=== PATIENT | female | born 1995 | race Caucasian/White ===

== ENCOUNTER 2017-11-18 15:28 | Inpatient (IN) | payer MEDICAID ==
[2017-11-18 16:04] LABS: APPEARANCE,URINE CLEAR; BILIRUBIN,URINE NEGATIVE (NEGATIVE); COLOR,URINE YELLOW; GLUCOSE, URINE NEGATIVE (NEGATIVE); KETONES,URINE NEGATIVE (NEGATIVE); LEUKOCYTE ESTERASE,URINE SMALL (NEGATIVE); NITRITE,URINE NEGATIVE (NEGATIVE); PROTEIN,URINE NEGATIVE (NEGATIVE); URINE SPECIFIC GRAVITY 1.012; UROBILINOGEN,URINE NEGATIVE mg/dL (<2.0)
[2017-11-18 16:12] LABS: AMNISURE (ROM) NEGATIVE (NEGATIVE)
[2017-11-18 16:15] LABS: URINE AMPHETAMINES SCREEN NEGATIVE; URINE BARBITURATES SCREEN NEGATIVE; URINE BENZODIAZEPINES SCREEN NEGATIVE; URINE COCAINE SCREEN NEGATIVE; URINE MARIJUANA (THC) SCREEN NEGATIVE; URINE METHADONE SCREEN NEGATIVE; URINE PHENCYCLIDINE SCREEN NEGATIVE
[2017-11-18 16:58] LABS: ABSOLUTE LYMPHOCYTES (AUTO) 2.8 10^3/uL (0.5-4.7); ABSOLUTE MONOCYTES (AUTO) 0.9 10^3/uL (0.1-1.4); ABSOLUTE NEUT (AUTO) 11.3 10^3/uL (1.7-8.2); BASOPHILS % (AUTO) 0.2 % (0-2); EOSINOPHILS % (AUTO) 0.1 % (0-6); HEMATOCRIT 34.6 % (36.0-47.0); HEMOGLOBIN 11.5 g/dL (12.0-15.5); LYMPHOCYTES % (AUTO) 18.4 % (13-45); MEAN CORPUSCULAR HEMOGLOBIN 28.1 pg (27.0-33.4); MEAN CORPUSCULAR HGB CONC 33.2 g/dL (32.0-36.0); MEAN CORPUSCULAR VOLUME 85 fl (80-97); MONOCYTES % (AUTO) 6.3 % (3-13); PLATELET COUNT 153 10^3/uL (150-450); RED CELL DISTRIBUTION WIDTH 13.6 % (11.5-14.0); TOTAL CELLS COUNTED % (AUTO) 100 %
[2017-11-18 17:22] LABS: ALANINE AMINOTRANSFERASE 19 U/L (9-52); ALBUMIN 3.3 g/dL (3.5-5.0); ALKALINE PHOSPHATASE 145 U/L (38-126); ANION GAP 9 (5-19); ASPARTATE AMINO TRANSFERASE 17 U/L (14-36); BILIRUBIN,DIRECT 0.1 mg/dL (0.0-0.4); BILIRUBIN,TOTAL 0.1 mg/dL (0.2-1.3); BLOOD UREA NITROGEN 12 mg/dL (7-20); CALCIUM 9.2 mg/dL (8.4-10.2); CARBON DIOXIDE 22 mmol/L (22-30); CHLORIDE 108 mmol/L (98-107); GLUCOSE 76 mg/dL (75-110); LDH 640 U/L (313-618); POTASSIUM 4.4 mmol/L (3.6-5.0); SODIUM 138.5 mmol/L (137-145); TOTAL PROTEIN 6.1 g/dL (6.3-8.2); URIC ACID 6.6 mg/dL (2.5-6.2)
[2017-11-18] MEDS ORDERED: BETAMET ACET/BETAMET NA INJ 6 MG/1 ML ONE (17:53)
[2017-11-18] MEDS ORDERED: MAGNESIUM SULFATE 0 GM/0 ML RTUPB IV ONE (18:02)
[2017-11-18] MEDS ORDERED: PENICILLIN G-K 5 MILLION UNIT VIAL ONE ×2 (18:03→22:04)
[2017-11-18] MEDS ORDERED: MAGNESIUM SULFATE 4 GM/100 ML RTUPB IV ONE (18:03)
[2017-11-18 18:09] LABS: ABSOLUTE EOSINOPHILS # (AUTO) 0.1 10^3/uL (0.0-0.6); ABSOLUTE LYMPHOCYTES (AUTO) 2.9 10^3/uL (0.5-4.7); ABSOLUTE MONOCYTES (AUTO) 0.9 10^3/uL (0.1-1.4); BASOPHILS % (AUTO) 0.3 % (0-2); EOSINOPHILS % (AUTO) 0.4 % (0-6); HEMOGLOBIN 10.8 g/dL (12.0-15.5); LYMPHOCYTES % (AUTO) 19.1 % (13-45); MEAN CORPUSCULAR HEMOGLOBIN 28.5 pg (27.0-33.4); MEAN CORPUSCULAR HGB CONC 33.7 g/dL (32.0-36.0); MEAN CORPUSCULAR VOLUME 85 fl (80-97); MONOCYTES % (AUTO) 6.1 % (3-13); PLATELET COUNT 142 10^3/uL (150-450); RED BLOOD COUNT 3.78 10^6/uL (3.72-5.28); RED CELL DISTRIBUTION WIDTH 13.7 % (11.5-14.0); SEGMENTED NEUTROPHILS % (AUTO) 74.1 % (42-78); TOTAL CELLS COUNTED % (AUTO) 100 %; WHITE BLOOD COUNT 14.9 10^3/uL (4.0-10.5)
[2017-11-18] MEDS ORDERED: MAGNESIUM SULFATE 20 GM/500 ML RTUINJ IV ONE (18:10)
[2017-11-18 18:24] LABS: ALANINE AMINOTRANSFERASE 23 U/L (9-52); ALBUMIN 2.8 g/dL (3.5-5.0); ALKALINE PHOSPHATASE 132 U/L (38-126); ANION GAP 11 (5-19); ASPARTATE AMINO TRANSFERASE 15 U/L (14-36); BILIRUBIN,TOTAL < 0.1 mg/dL (0.2-1.3); BLOOD UREA NITROGEN 11 mg/dL (7-20); CALCIUM 8.7 mg/dL (8.4-10.2); CARBON DIOXIDE 20 mmol/L (22-30); CHLORIDE 108 mmol/L (98-107); GLUCOSE 105 mg/dL (75-110); LDH 581 U/L (313-618); POTASSIUM 4.2 mmol/L (3.6-5.0); SODIUM 139.3 mmol/L (137-145); TOTAL PROTEIN 5.4 g/dL (6.3-8.2); URIC ACID 6.5 mg/dL (2.5-6.2)
--- NOTE | 2017-11-18 18:24 | Admission Physical ---
Datetime Report Generated by CPN: 11/18/2017 18:23 CURRENT ADMISSION Chief Complaint: Uterine Contractions Indication for Induction: Not Applicable Admit Impression : , Intrauterine ; Obstetrical Complication Admit Impression- Other: Elevated b/p; uric acid-6.6; LDH-640--admitting for pre-eclampsia Admit Plan: Admit to Unit Admit Plan- Other: Preeclampsia ALLERGIES Medication Allergies: No Medication Allergies: No Known Allergies (11/18/2017) Latex: No Latex Allergies OBSTETRICAL HISTORY EDC: 12/31/2017 00:00 : 2 Para: 1 Term: 0 : 1 SAB: 0 IAB: 0 Gestational Diabetes: No Rh Sensitization: No Incompetent Cervix: No MAI: No Infertility: No ART Treatment: No Uterine Anomaly: No IUGR: No Hx Previous C/S: No Macrosomia: No Hx Loss/Stillborn: No PIH: Yes Hx : No Placenta Previa/Abruption: Yes Depression/PP Depression: Yes PTL/PROM: No Post Hemorrhage: Yes Current Procedures: Ultrasound; NST Obstetrical History Comments: G1: 2014, 29 weeks, abruption G2: current SEE RECORDS Alcohol: No Marijuana : No Cocaine: No Other Illicit Drugs: No Cigarettes: Never Smoker. [id number] MEDICAL HISTORY Diabetes: No Blood Transfusion: No Pulmonary Disease (Asthma, TB): No Breast Disease: No Hypertension: No Transmission And Protection Engineer Surgery: No Heart Disease: No Hosp/Surgery: No Autoimmune Disorder: No Anesthetic Complications: No Kidney Disease: No Abnormal Pap Smear: No Neuro/Epilepsy: No Psychiatric Disorders: No Other Medical Diseases: No Hepatitis/Liver Disease: No Significant Family History: No Varicosities/Phlebitis: No Trauma/Violence : No Thyroid Dysfunction: No INFECTIOUS HISTORY Gonorrhea: No Genital Herpes: No Chlamydia: No Tuberculosis: No Syphilis: No Hepatitis: No HIV/AIDS Exposure: No Rash or Viral Illness: No HPV: No Infectious History Comments: chlamiydia in June, PHYSICAL EXAM General: Normal HEENT: Normal Neurologic: Normal Thyroid: Deferred Heart: Abnormal Lungs: Normal Breast: Deferred Back: Deferred Abdomen: Normal Genitourinary Exam: Deferred Extremities: Normal DTRs: Normal Pelvic Type: Not Done Physical Exam Comments: Gravid uterus Vital Signs: Reviewed Details Vital Signs: Elevated b/p FETUS A EGA: 33.6 Monitoring: External US FHR- Baseline: 130 Variability: Moderate 6-25bpm Accelerations: 15X15 FHR Category: Category I Admit Comment: Prior c/s at 29 wks for preeclampsia-hospitalized x1 wk pp for severe b/p. Baby with heart murmur and inguinal hernia repair. Medications: PNV, ASA 81mg daily-last dose this am, Wellbutrin 300mg po qd. History Chorea Gravidarum throughout last and at beginning of current History spotting in and again 2 wks ago Psychosocial issues: Different FOB this , was terminated, FOB involvement dependent on paternity testing Awaiting antepartum records from [facility]-last seen there mid PLANS FOR LABOR AND DELIVERY Labor and Delivery: None Pain Management: Epidural; Spinal Feeding Preference: Breast Benefit of Breast Feed Discussed: Yes Circumcision: Yes INFORMED CONSENT Assignment: Salomón Castaneda MD Signature: with User ID: [email or web address] : with User ID: [email or web address] : I personally evaluated and examined the patient in conjunction with the MLP and agree with the assessment, treatment plan and disposition.
[2017-11-18] MEDS ORDERED: ACETAMINOPHEN 325 MG TABLET ONE (20:09)
[2017-11-18 22:23] LABS: UR PRO/CREAT RATIO RESULT 0.2 mg/mg (0.0-0.2); URINE CREATININE 86.5 mg/dL (16-327); URINE PROTEIN 15.4 mg/dL (<12)
[2017-11-19] MEDS ORDERED: ACETAMINOPHEN 325 MG TABLET ONE ×3 (01:07→10:17)
[2017-11-19] MEDS ORDERED: PENICILLIN G-K 5 MILLION UNIT VIAL ONE ×4 (01:55→14:19)
[2017-11-19] MEDS: PENICILLIN G-K 5 MILLION UNIT VIAL IV SCH ×4 (02:01→14:24)
[2017-11-19] MEDS ORDERED: MAGNESIUM SULFATE 20 GM/500 ML RTUINJ IV ONE ×2 (02:59→12:54)
[2017-11-19 07:16] LABS: ABSOLUTE LYMPHOCYTES (AUTO) 1.6 10^3/uL (0.5-4.7); ABSOLUTE MONOCYTES (AUTO) 0.1 10^3/uL (0.1-1.4); ABSOLUTE NEUT (AUTO) 13.4 10^3/uL (1.7-8.2); BASOPHILS % (AUTO) 0.1 % (0-2); HEMATOCRIT 35.3 % (36.0-47.0); LYMPHOCYTES % (AUTO) 10.7 % (13-45); MEAN CORPUSCULAR HEMOGLOBIN 28.3 pg (27.0-33.4); MEAN CORPUSCULAR HGB CONC 33.8 g/dL (32.0-36.0); MEAN CORPUSCULAR VOLUME 84 fl (80-97); MONOCYTES % (AUTO) 0.8 % (3-13); PLATELET COUNT 160 10^3/uL (150-450); RED BLOOD COUNT 4.22 10^6/uL (3.72-5.28); RED CELL DISTRIBUTION WIDTH 13.9 % (11.5-14.0); SEGMENTED NEUTROPHILS % (AUTO) 88.4 % (42-78); TOTAL CELLS COUNTED % (AUTO) 100 %; WHITE BLOOD COUNT 15.2 10^3/uL (4.0-10.5)
[2017-11-19 07:30] LABS: BLOOD UREA NITROGEN 9 mg/dL (7-20); CALCIUM 7.5 mg/dL (8.4-10.2); GLUCOSE 100 mg/dL (75-110)
[2017-11-19 07:31] LABS: ALANINE AMINOTRANSFERASE 24 U/L (9-52); ALBUMIN 3.1 g/dL (3.5-5.0); ALKALINE PHOSPHATASE 161 U/L (38-126); ANION GAP 9 (5-19); ASPARTATE AMINO TRANSFERASE 17 U/L (14-36); BILIRUBIN,DIRECT 0.2 mg/dL (0.0-0.4); BILIRUBIN,TOTAL 0.2 mg/dL (0.2-1.3); CARBON DIOXIDE 22 mmol/L (22-30); CHLORIDE 104 mmol/L (98-107); LDH 634 U/L (313-618); TOTAL PROTEIN 5.8 g/dL (6.3-8.2); URIC ACID 6.3 mg/dL (2.5-6.2)
[2017-11-19 07:44] LABS: POTASSIUM 5.1 mmol/L (3.6-5.0)
[2017-11-19 08:56] LABS: ABSOLUTE LYMPHOCYTES (AUTO) 1.6 10^3/uL (0.5-4.7); ABSOLUTE MONOCYTES (AUTO) 0.2 10^3/uL (0.1-1.4); ABSOLUTE NEUT (AUTO) 13.4 10^3/uL (1.7-8.2); BASOPHILS % (AUTO) 0.1 % (0-2); HEMOGLOBIN 11.7 g/dL (12.0-15.5); LYMPHOCYTES % (AUTO) 10.6 % (13-45); MEAN CORPUSCULAR HGB CONC 33.3 g/dL (32.0-36.0); MEAN CORPUSCULAR VOLUME 84 fl (80-97); MONOCYTES % (AUTO) 1.5 % (3-13); PLATELET COUNT 176 10^3/uL (150-450); RED BLOOD COUNT 4.16 10^6/uL (3.72-5.28); RED CELL DISTRIBUTION WIDTH 13.8 % (11.5-14.0); SEGMENTED NEUTROPHILS % (AUTO) 87.8 % (42-78); TOTAL CELLS COUNTED % (AUTO) 100 %; WHITE BLOOD COUNT 15.3 10^3/uL (4.0-10.5)
[2017-11-19 09:13] LABS: ALANINE AMINOTRANSFERASE 26 U/L (9-52); ALKALINE PHOSPHATASE 164 U/L (38-126); ANION GAP 7 (5-19); ASPARTATE AMINO TRANSFERASE 18 U/L (14-36); BILIRUBIN,DIRECT 0.2 mg/dL (0.0-0.4); BILIRUBIN,TOTAL 0.2 mg/dL (0.2-1.3); BLOOD UREA NITROGEN 9 mg/dL (7-20); CALCIUM 7.4 mg/dL (8.4-10.2); CARBON DIOXIDE 22 mmol/L (22-30); CHLORIDE 105 mmol/L (98-107); GLUCOSE 95 mg/dL (75-110); LDH 637 U/L (313-618); POTASSIUM 4.9 mmol/L (3.6-5.0); SODIUM 133.5 mmol/L (137-145); TOTAL PROTEIN 5.7 g/dL (6.3-8.2); URIC ACID 6.2 mg/dL (2.5-6.2)
--- NOTE | 2017-11-19 10:20 | RADIOLOGY REPORT (SQ) ---
EXAM DESCRIPTION: U/S OB LIMITED COMPLETED DATE/TIME: 11/19/2017 10:06 am REASON FOR STUDY: presentation, fluid, growth COMPARISON: None. TECHNIQUE: Limited transabdominal grayscale ultrasound for evaluation of specific requested obstetri abigail parameters. LIMITATIONS: None. FINDINGS: CERVICAL LENGTH: Not measured Closed. ALFREDA: 6.4 cm cm. FHR: 119 beats per minute. PRESENTATION: Cephalic. OTHER: The placenta is anterior. IMPRESSION: LIMITED OBSTETRICAL ULTRASOUND WITH MEASURED PARAMETERS DELINEATED ABOVE. Trimester of : Second trimester - 13 weeks 1 day to 27 weeks 6 days. TECHNICAL DOCUMENTATION: JOB ID: [id number] [employer]- All Rights Reserved Reading location - IP/workstation name: [email or web address]
[2017-11-19] MEDS: ACETAMINOPHEN 325 MG TABLET PO PRN (10:27)
[2017-11-19] MEDS ORDERED: ONDANSETRON ODT 4 MG TAB (6 TAB/ER DISP) PO PRN (10:31)
[2017-11-19] MEDS ORDERED: ONDANSETRON HCL INJ/PF 4 MG/2 ML SDV ONE (10:35)
[2017-11-19] MEDS ORDERED: OXYTOCIN/NORMAL SALINE 20 UNIT/1,000 ML RTUINJ IV PRN ×2 (10:47→18:39)
[2017-11-19] MEDS ORDERED: NORMAL SALINE 250 ML IV PRN (10:59)
[2017-11-19] MEDS ORDERED: LIDOCAINE 1% INJ-PF (10 MG/ML) 30 ML SDV ONE (11:22)
[2017-11-19] MEDS ORDERED: MISOPROSTOL 0.2 MG TABLET ONE (11:22)
[2017-11-19] MEDS ORDERED: OXYTOCIN/NORMAL SALINE 20 UNIT/1,000 ML RTUINJ ONE (11:23)
[2017-11-19] MEDS ORDERED: BUTALB/ACETAMINOPHEN/CAFFEINE 1 TAB EACH PO PRN (12:08)
[2017-11-19] MEDS ORDERED: BUTALB/ACETAMINOPHEN/CAFFEINE 1 TAB EACH ONE ×2 (12:13→16:10)
[2017-11-19] MEDS ORDERED: FENTANYL CITRATE INJ/PF 100 MCG/2 ML AMPUL ONE ×2 (12:35→18:28)
[2017-11-19] MEDS ORDERED: FENTANYL/BUPIVACAINE/NS/PF 300 MCG/150 ML RTUINJ EPI ONE (12:36)
[2017-11-19] MEDS ORDERED: BUPIVACAINE HCL 0.25 % INJ/PF (2.5 MG/1 ML) 30 ML VIAL ONE (12:36)
[2017-11-19] MEDS ORDERED: PHENYLEPHRINE HCL INJ/PF 10 MG/1 ML SDV ONE (12:36)
[2017-11-19] MEDS ORDERED: EPHEDRINE SULFATE INJ 50 MG/1 ML AMPULE ONE (12:36)
[2017-11-19] MEDS ORDERED: ONDANSETRON 4 MG TAB.RAPDIS PO ONE (12:45)
--- NOTE | 2017-11-19 13:07 | L&D Progress Notes ---
PROGRESS NOTES Datetime Report Generated by YOBANY: 11/19/2017 13:07 PROGRESS NOTE Impression: Normal Progression of Labor; Reactive Non Stress Test Procedures: Sterile Vag Exam Plan: Continue Present Management; Induction; Cervical Ripening Informed Consent Obtained: Vaginal Delivery; Induction of Labor; Vaginal After ; Risks, Benefits and Alternatives Discussed Vital Signs : Within Normal Limits Comment: Pt with MORALES/Blurry vision. No RUQ pain. Extensive discussion with patient regarding TOLAC. Pt strongly desires to TOLAC and is a very good candidate to do so. Consents signed. Next dose of BMZ due 175. NICU aware that moving for delivery with Sever PreE. MORALES relieved with Tylenol and Fioricet. Blood bank has Blood but no platlets/cryo - however labs are stable (platlets normal and CBC normal). T_C x 2 units. Reviewed need for pressure catheter once AROM and that if baby or her appear to not be doing well that would recommend c/s. Reviewed risk of uterine rupture to mother and fetus. Patient desires to proceed with TOLAC but is aware of possible need for repeat c/s if maternal/ indications. Currently on mag sulfate and Abx. VAGINAL EXAM Dilatation: 2 Effacement: 50 Station: -2 Contractions: irreg FETUS A FHR - Baseline: 120 Monitoring: External US Variability: Moderate 6-25bpm Accelerations: 10X10 Decelerations: None FHR Category: Category II : 33.6 SIGNATURE SIGNATURE: [id number] SIGNATURE: [id number] Signature: with User ID: [email or web address] : I personally evaluated and examined the patient in conjunction with the MLP and agree with the assessment, treatment plan and disposition.
[2017-11-19] MEDS ORDERED: BETAMET ACET/BETAMET NA INJ 6 MG/1 ML IM ONE (13:48)
[2017-11-19] MEDS ORDERED: BETAMET ACET/BETAMET NA INJ 6 MG/1 ML ONE (13:52)
[2017-11-19 15:57] LABS: HEMATOCRIT 37.6 % (36.0-47.0); HEMOGLOBIN 12.5 g/dL (12.0-15.5); MEAN CORPUSCULAR HEMOGLOBIN 28.2 pg (27.0-33.4); MEAN CORPUSCULAR HGB CONC 33.3 g/dL (32.0-36.0); MEAN CORPUSCULAR VOLUME 85 fl (80-97); PLATELET COUNT 193 10^3/uL (150-450); RED BLOOD COUNT 4.43 10^6/uL (3.72-5.28); RED CELL DISTRIBUTION WIDTH 13.8 % (11.5-14.0); WHITE BLOOD COUNT 21.8 10^3/uL (4.0-10.5)
[2017-11-19 16:12] LABS: ABSOLUTE LYMPHOCYTES# (MANUAL) 2.4 10^3/uL (0.5-4.7); ABSOLUTE MONOCYTES # (MANUAL) 0.7 10^3/uL (0.1-1.4); ABSOLUTE NEUTROPHILS# (MANUAL) 18.7 10^3/uL (1.7-8.2); BASOPHILS % (MANUAL) 0 % (0-2); EOSINOPHILS % (MANUAL) 0 % (0-6); LYMPHOCYTES % (MANUAL) 11 % (13-45); MONOCYTES % (MANUAL) 3 % (3-13); SEGMENTED NEUTROPHILS % (MAN) 86 % (42-78); TOTAL CELLS COUNTED 100
[2017-11-19 16:13] LABS: PLATELET COMMENT ADEQUATE; TOXIC GRANULATION SLIGHT
[2017-11-19 16:16] LABS: ALANINE AMINOTRANSFERASE 20 U/L (9-52); ALBUMIN 3.5 g/dL (3.5-5.0); ALKALINE PHOSPHATASE 187 U/L (38-126); ANION GAP 13 (5-19); ASPARTATE AMINO TRANSFERASE 22 U/L (14-36); BILIRUBIN,DIRECT 0.3 mg/dL (0.0-0.4); BILIRUBIN,TOTAL 0.4 mg/dL (0.2-1.3); BLOOD UREA NITROGEN 9 mg/dL (7-20); CALCIUM 7.1 mg/dL (8.4-10.2); CARBON DIOXIDE 19 mmol/L (22-30); CHLORIDE 102 mmol/L (98-107); GLUCOSE 99 mg/dL (75-110); LDH 832 U/L (313-618); POTASSIUM 4.6 mmol/L (3.6-5.0); SODIUM 134.2 mmol/L (137-145); TOTAL PROTEIN 6.4 g/dL (6.3-8.2); URIC ACID 6.3 mg/dL (2.5-6.2)
[2017-11-19] MEDS ORDERED: MAGNESIUM HYDROXIDE SUSP 30 ML UDCUP PO PRN (18:39)
[2017-11-19] MEDS ORDERED: PSEUDOEPHEDRINE HCL 30 MG TABLET PO PRN (18:39)
[2017-11-19] MEDS ORDERED: ACETAMINOPHEN WITH CODEINE #3 TABLET PO PRN (18:39)
[2017-11-19] MEDS ORDERED: ACETAMINOPHEN 325 MG TABLET PO PRN (18:39)
[2017-11-19] MEDS ORDERED: GLYCERIN/WITCH HAZEL LEAF 1 EACH MED..PAD TP PRN (18:39)
[2017-11-19] MEDS ORDERED: DIPH/PERTUSS(ACELL)/TETANUS VAC/PF 0.5 ML SYR (>=10YO) IM PRN (18:39)
[2017-11-19] MEDS ORDERED: PROMETHAZINE HCL INJ 25 MG/1 ML VIAL IV PRN (18:39)
[2017-11-19] MEDS ORDERED: PROMETHAZINE HCL 25 MG SUPP.RECT PR PRN (18:39)
[2017-11-19] MEDS ORDERED: BENZOCAINE/MENTHOL AEROSOL SPRAY 56 ML TOP PRN (18:39)
[2017-11-19] MEDS ORDERED: PROMETHAZINE HCL 25 MG TABLET PO PRN (18:39)
[2017-11-19] MEDS ORDERED: DIBUCAINE 1% OINTMENT 28 GM TP PRN (18:39)
[2017-11-19] MEDS ORDERED: ZOLPIDEM TARTRATE 5 MG TABLET PO PRN (18:39)
[2017-11-19] MEDS ORDERED: MEASLES,MUMPS&RUBELLA VACC/PF 0.5 ML VIAL SUBCUT PRN (18:39)
[2017-11-19] MEDS ORDERED: DIPHENHYDRAMINE HCL 25 MG CAPSULE PO PRN (18:39)
[2017-11-19] MEDS ORDERED: NA PHOS,M-B/NA PHOS,DI-BA (ADULT) 133 ML ENEMA PR PRN (18:39)
[2017-11-19] MEDS ORDERED: ACETAMINOPHEN 650 MG SUPP.RECT PR PRN (18:39)
[2017-11-19] MEDS ORDERED: MISOPROSTOL 0.2 MG TABLET PR PRN (18:39)
--- NOTE | 2017-11-19 18:54 | Warning Signs in Babies ---
VOD Warning Signs Datetime Report Generated by [facility]: 11/19/2017 18:53 VOD#[id number] -Warning Signs in Babies: Viewed with Parent(s)/Family (11/19/2017 18:52:Nelli Ashby RN)
[2017-11-19] MEDS ORDERED: FENTANYL CITRATE INJ/PF 100 MCG/2 ML AMPUL IV PRN (18:57)
[2017-11-20] MEDS ORDERED: IBUPROFEN 800 MG TABLET ONE (00:05)
[2017-11-20] MEDS: IBUPROFEN 800 MG TABLET PO SCH ×3 (00:05→21:01)
[2017-11-20] MEDS ORDERED: ACETAMINOPHEN WITH CODEINE #3 TABLET ONE ×2 (03:42→15:39)
[2017-11-20] MEDS: FAMOTIDINE 20 MG TABLET PO SCH ×3 (03:43→21:00)
[2017-11-20] MEDS: PENICILLIN G-K 5 MILLION UNIT VIAL IV SCH ×5 (03:43→22:31)
[2017-11-20] MEDS: DOCUSATE SODIUM 100 MG CAPSULE PO SCH ×2 (03:59→18:31)
[2017-11-20] MEDS: SENNOSIDES/DOCUSATE 8.6-50 MG 1 EACH TABLET PO SCH (03:59)
[2017-11-20] MEDS ORDERED: MAGNESIUM SULFATE 20 GM/500 ML RTUINJ IV ONE (04:28)
[2017-11-20] MEDS ORDERED: MAGNESIUM SULFATE 20 GM/500 ML RTUINJ IV PRN (04:33)
[2017-11-20] MEDS ORDERED: FUROSEMIDE INJ/PF 20 MG/2 ML SDV IV ONE (06:34)
[2017-11-20] MEDS ORDERED: FUROSEMIDE INJ/PF 40 MG/4 ML SDV ONE (06:40)
--- NOTE | 2017-11-20 06:49 | L&D Progress Notes ---
PROGRESS NOTES Datetime Report Generated by CPN: 11/20/2017 06:49 PROGRESS NOTE Impression: Eclampsia - Severe Plan: Continue Present Management Informed Consent Obtained: Risks, Benefits and Alternatives Discussed Vital Signs : Reviewed Comment: 12hours post delivery for symptomatic PreE/ - UOP remains 150ml/hr. Reviewed UOP with patient and reviewed need for improved UOP. Cr last was 0.84 and UA and LDH and Alk phos elevated with platlets stable. labs pending for 0700. If good response to lasix then consider discontinue Mag and begin [place] and transfer to the floor. Will conitnue to monitor. PreE symptoms now resolved. FETUS C SIGNATURE: [id number];,[id number];[id number] SIGNATURE: [id number];,[id number];,[id number] Signature: with User ID: [email or web address]
[2017-11-20 08:16] LABS: ALANINE AMINOTRANSFERASE 18 U/L (9-52); ALBUMIN 2.7 g/dL (3.5-5.0); ALKALINE PHOSPHATASE 114 U/L (38-126); ANION GAP 8 (5-19); ASPARTATE AMINO TRANSFERASE 20 U/L (14-36); BLOOD UREA NITROGEN 12 mg/dL (7-20); CARBON DIOXIDE 24 mmol/L (22-30); CHLORIDE 105 mmol/L (98-107); GLUCOSE 94 mg/dL (75-110); LDH 703 U/L (313-618); POTASSIUM 4.6 mmol/L (3.6-5.0); SODIUM 136.9 mmol/L (137-145); TOTAL PROTEIN 5.1 g/dL (6.3-8.2); URIC ACID 6.2 mg/dL (2.5-6.2)
[2017-11-20 08:24] LABS: HEMATOCRIT 29.5 % (36.0-47.0); MEAN CORPUSCULAR HEMOGLOBIN 28.5 pg (27.0-33.4); MEAN CORPUSCULAR HGB CONC 34.2 g/dL (32.0-36.0); MEAN CORPUSCULAR VOLUME 83 fl (80-97); PLATELET COUNT 169 10^3/uL (150-450); RED BLOOD COUNT 3.53 10^6/uL (3.72-5.28); RED CELL DISTRIBUTION WIDTH 13.9 % (11.5-14.0)
[2017-11-20 08:27] LABS: HEMOGLOBIN 10.1 g/dL (12.0-15.5)
[2017-11-20 08:28] LABS: BILIRUBIN,TOTAL < 0.1 mg/dL (0.2-1.3)
[2017-11-20 08:29] LABS: CALCIUM 6.8 mg/dL (8.4-10.2)
[2017-11-20] MEDS: FERROUS SULFATE 325 MG TABLET PO SCH (19:28)
[2017-11-20] MEDS: PRENATAL VITAMIN W DHA CAPSULE PO SCH (19:28)
[2017-11-20] MEDS: ACETAMINOPHEN WITH CODEINE #3 TABLET PO PRN (23:51)
[2017-11-21] MEDS: PENICILLIN G-K 5 MILLION UNIT VIAL IV SCH ×2 (05:01→12:16)
[2017-11-21] MEDS: IBUPROFEN 800 MG TABLET PO SCH ×3 (05:19→21:26)
[2017-11-21] MEDS: PRENATAL VITAMIN W DHA CAPSULE PO SCH (09:03)
[2017-11-21] MEDS: DOCUSATE SODIUM 100 MG CAPSULE PO SCH ×2 (09:03→18:00)
[2017-11-21] MEDS: FAMOTIDINE 20 MG TABLET PO SCH ×2 (09:04→21:27)
[2017-11-21] MEDS: SENNOSIDES/DOCUSATE 8.6-50 MG 1 EACH TABLET PO SCH (09:04)
[2017-11-21] MEDS: FERROUS SULFATE 325 MG TABLET PO SCH ×2 (09:04→18:00)
[2017-11-21] MEDS: ACETAMINOPHEN WITH CODEINE #3 TABLET PO PRN (09:12)
--- NOTE | 2017-11-21 10:07 | PDOC PROGRESS REPORT ---
Subjective-OB Progress Note for:: 11/21/17 Subjective: Day #2 s/p successful Pt doing well, denies concerns, states lochia is stable, pain well controlled, voiding without difficulty. Denies headache, visual disturbances, or epigastric pain Physical Exam (OB) Vital Signs: Temp Pulse Resp BP Pulse Ox 98.4 F 64 16 120/76 99 11/21/17 07:16 11/21/17 07:16 11/21/17 07:16 11/21/17 07:16 11/21/17 07:16 Intake & Output 11/20/17 11/21/17 11/22/17 06:59 06:59 06:59 Intake Total 400 Balance 400 - PIH/Pre-Eclampsia DTR's: 2 + Clonus: Negative Headache: Absent Epigastric Pain: No Visual Changes: No - Lochia Lochia Amount: Scant < 10 ml Lochia Color: Rubra/Red - Abdomen Description: Tender, Soft, Round Hernia Present: No Fundal Description: Firm, Midline Fundal Height: u/u - u/2 Objective-Diagnostic Laboratory: 11/20/17 06:40 11/20/17 06:40 Assessment and Plan(PN) - Assessment and Plan (1) History of low transverse section Is this a current diagnosis for this admission?: Yes Plan: routine post op care (2) Pre-eclampsia Qualifiers: Trimester: third trimester Qualified Code(s): O14.93 - Unspecified pre- eclampsia, third trimester Is this a current diagnosis for this admission?: Yes Plan: routine care, in office f/u (3) Vaginal delivery following previous section, delivered Is this a current diagnosis for this admission?: Yes Plan: routine care - Time Spent with Patient Time with patient: Less than 15 minutes Critical Time spent with patient: Less than 15 minutes Medications reviewed and adjusted accordingly: Yes - Disposition Anticipated Discharge: Home Within: within 24 hours
[2017-11-21] MEDS ORDERED: BUPROPION HCL 100 MG TABLET PO ONE ×2 (17:45→19:00)
[2017-11-21] MEDS ORDERED: NIFEDIPINE 30 MG TAB.ER.24 PO ONE (19:00)
[2017-11-21] MEDS: BUPROPION HCL 100 MG TABLET PO SCH (21:22)
[2017-11-22] MEDS: ACETAMINOPHEN 325 MG TABLET PO PRN (03:44)
[2017-11-22] MEDS ORDERED: BUPROPION HCL 100 MG TABLET PO SCH (06:00)
[2017-11-22] MEDS: BUPROPION HCL 100 MG TABLET PO SCH (06:17)
[2017-11-22] MEDS: IBUPROFEN 800 MG TABLET PO SCH (06:17)
[2017-11-22 08:36] VITALS: BP 119/94
[2017-11-22] MEDS ORDERED: DIPH/PERTUSS(ACELL)/TETANUS VAC/PF 0.5 ML SYR (>=10YO) IM PRN (09:30)
[2017-11-22] MEDS ORDERED: MEASLES,MUMPS&RUBELLA VACC/PF 0.5 ML VIAL SUBCUT PRN (09:30)
--- NOTE | 2017-11-22 09:31 | PDOC DISCHARGE SUMMARY ---
Final Diagnosis Discharge Date: 11/22/17 - Final Diagnosis (1) History of low transverse section Is this a current diagnosis for this admission?: Yes (2) Pre-eclampsia Is this a current diagnosis for this admission?: Yes (3) Vaginal delivery following previous section, delivered Is this a current diagnosis for this admission?: Yes Discharge Data - Discharge Medication Prescriptions: Ibuprofen [Motrin 800 mg Tablet] 800 mg PO Q8 #60 tablet Nifedipine [Procardia XL 30 mg Tablet] 30 mg PO DAILY #30 tab.er.24 Home Medications: Aspirin [Aspirin 81 mg Chewable Tablet] 81 mg PO DAILY 11/18/17 Bupropion HCl [Wellbutrin 75 mg Tablet] 1 tab PO DAILY 11/18/17 Oiktyu20/Iron Fum,Ps/Folic/Dha [Provida Dha Capsule] 1 tab PO DAILY 11/18/17 Ibuprofen [Motrin 800 mg Tablet] 800 mg PO Q8 #60 tablet 11/22/17 Nifedipine [Procardia XL 30 mg Tablet] 30 mg PO DAILY #30 tab.er.24 11/22/17 Reason(s) for Admission: Induction of Labor, , Medical Complications, Other - Pre E w/ seere features Admission Note: admitted for Pre E with Severe Features due to elevated BPs and symptoms of headache/blurry vision refractory to medical mgmt. Delviered by without complications. Post Magnesium completed. Labs stable. Procedures: None, Management of Medical Complications Intrapartum Procedure(s): Other - - Diagnosis Test Laboratory: Temp Pulse Resp BP Pulse Ox 98.3 F 82 16 119/94 H 99 11/22/17 07:39 11/22/17 07:39 11/22/17 07:39 11/22/17 07:39 11/22/17 07:39 11/18/17 11/18/17 11/18/17 15:42 16:38 17:53 RBC 4.10 3.78 Hgb 11.5 L 10.8 L Hct 34.6 L 32.0 L Urine Opiates Screen NEGATIVE 11/19/17 11/19/17 11/19/17 06:39 08:25 15:32 RBC 4.22 4.16 4.43 Hgb 12.0 11.7 L 12.5 Hct 35.3 L 35.0 L 37.6 Urine Opiates Screen 11/20/17 06:40 RBC 3.53 L Hgb 10.1 L D Hct 29.5 L Urine Opiates Screen - Discharge information/Instructions Discharge Activity: Balance Activity w/Rest, Pelvic Rest, No tub bath Discharge Diet: As Tolerated Disposition: HOME, SELF-CARE Follow up with: [facility] in: 4, Weeks
[2017-11-22] MEDS ORDERED: NIFEDIPINE 30 MG TAB.ER.24 PO SCH (10:00)
[2017-11-22] MEDS ORDERED: BUPROPION HCL 75 MG TABLET PO SCH (10:00)
[2017-11-22] MEDS: PRENATAL VITAMIN W DHA CAPSULE PO SCH (10:50)
[2017-11-22] MEDS: FERROUS SULFATE 325 MG TABLET PO SCH (10:50)
[2017-11-22] MEDS: FAMOTIDINE 20 MG TABLET PO SCH (10:50)
[2017-11-22] MEDS: DOCUSATE SODIUM 100 MG CAPSULE PO SCH (10:50)
[2017-11-22] MEDS: SENNOSIDES/DOCUSATE 8.6-50 MG 1 EACH TABLET PO SCH (10:55)
--- NOTE | 2017-12-14 09:56 | Delivery Summary ---
Del Sum A-C Datetime Report Generated by CPN: 12/14/2017 09:56 DELIVERY PERSONNEL DELIVERY PERSONNEL: [id number] Delivery Doctor:: Dafen Stokes MD Anesthesiologist:: Negra Cardenas MD Labor and Delivery Nurse:: Nelli Ashby RNmedicare coordinator Nurse:: Sadiq Marion RN Geriatric Case Manager:: ARIANNA Cintron Nursery Nurse:: Tania Joiner RN Cloth Wire Weaver/COMPLAINT SUPERVISOR: Lucita Yao CNA II MATERNAL INFORMATION Delivery Anesthesia: Epidural Medications After Delivery: Pitocin Drip 20 Units/1000ml NSS Estimated Blood Loss (ml): 400 Maternal Complications: Other Other Maternal Complications: induction for pre eclampsia Provider Comments: Case discussed with NICU and Anesthesia and patient and consented for TOLAC. Cooks catheter placed and then AROM with appropriate cervical change throughout and reassuring FHR tracing throughout. VMI delivered in Direct OA presentation. No nuchal cord. Shoulders and body delivered without difficulty. NICU present. to NICU team care on mothers abdomen. Placenta delivered intact spontaneously. Uterine evacuation done with no e/o retained placenta. Bilateral small lacerations repaired due to need for hemostasis. Good hemostasis. Cytotec 1000mcg IN placed. FF at U. Will replaced Cheng to gravity as patient will be on Magnesium. Mother stable. Baby to Nursery. LABOR SUMMARY EDC: 12/31/2017 00:00 No. Babies in Womb: 1 Attempted: Yes Labor Anesthesia: Epidural LABOR INFORMATION Reason for Induction: Pre-Eclampsia Onset of Labor: 11/19/2017 08:00 Complete Dilatation: 11/19/2017 17:54 Cervical Ripening Agents: Cheng Balloon Oxytocin: Induction Group B Beta Strep: unkown Antibiotics # of Doses: 6 Antibiotics Time of Last Dose: 1425 Name of Antibiotic Given: penicillin Steroids Given: Full Course Reason Steroids Not Administered: Indication MEMBRANES Membranes Rupture Method: Artificial Rupture of Membranes: 11/19/2017 14:45 Length of Rupture (hr): 3.48 Amniotic Fluid Color: Clear Amniotic Fluid Amount: Moderate Amniotic Fluid Odor: Normal STAGES OF LABOR Stage 1 hr: 9 Stage 1 min: 54 Stage 2 hr: 0 Stage 2 min: 20 Stage 3 hr: 0 Stage 3 min: 2 Total Time in Labor hr: 10 Total Time in Labor min: 16 VAGINAL DELIVERY Laceration #1: Vaginal Laceration Extension #1: N/A Laceration Repair: Yes Laceration Repair Note: Bilateral small labial lacerations repeaired Sponge Count Correct: Yes Sharps Count Correct: Yes CSECTION DELIVERY Primary Indication: N/A Secondary Indication: N/A CSection Incidence: N/A Labor: N/A Elective: N/A CSection Incision: N/A BABY A INFORMATION Infant Delivery Date/Time: 11/19/2017 18:14 Method of Delivery: Vaginal Born in Route : No : Successful Forceps: N/A Vacuum Extraction: N/A Shoulder Dystocia : No PRESENTATION/POSITION BABY A Presentation: Cephalic Cephalic Presentation: Vertex Vertex Position: direct op Breech Presentation: N/A PLACENTA INFORMATION BABY A Placenta Delivery Time : 11/19/2017 18:16 Placenta Method of Delivery: Spontaneous Placenta Status: Delivered SCORES BABY A Heart Rate 1 min: >100 bpm Resp Effort 1 min: Good Cry Reflex Irritability 1 min: Cough or Sneeze or Pulls Away Muscle Tone 1 min: Some Flexion of Extremities Color 1 min: Body [place], Extremities Blue Resuscitation Effort 1 min: Tactile Stimulation SCORE 1 MIN: 8 Heart Rate 5 min: >100 bpm Resp Effort 5 min: Good Cry Reflex Irritability 5 min: Cough or Sneeze or Pulls Away Muscle Tone 5 min: Active Motion Color 5 min: Body [place], Extremities Blue Resuscitation Effort 5 min: N/A SCORE 5 MIN: 9 INFORMATION BABY A Gestational Age at Delivery: 34.0 Gestational Status: Late - 34- 36.6 Weeks Infant Outcome : Liveborn Infant Condition : Stable Infant Sex: Male IDENTIFICATION BABY A Infant Verification Date/Time: 11/19/2017 18:24 ID Band Number: [id number] Mother's Name Verified: Yes RN Verifying Infant: R. Sanam RN/D. Sprout COMPLAINT SUPERVISOR WEIGHT/LENGTH BABY A Birthweight (gm): 2262 Infant Weight (lb): 5 Weight (oz): 0 Length (in): 18.00 Infant Length (cm): 45.72 CORD INFORMATION BABY A No. Cord Vessels: 3 Nuchal Cord : N/A Cord Blood Taken: Yes-For Eval (Mom's Blood Type - or O+) Infant Suction: Mouth; Nose ASSESSMENT BABY A Infant Complications: Multiple Variable Decels Physical Findings at Delivery: Within Normal Limits Respirations: Grunting Skin to Skin: No Skin to Skin Time (min): 3 Salon Customer Experience Specialist/ALS Called : Yes Infant Care By: Serjio Abbott RN Transferred To: NICU BABY B INFORMATION : N/A SIGNATURES : I personally evaluated and examined the patient in conjunction with the MLP and agree with the assessment, treatment plan and disposition.
== END 2017-11-22 12:46 | disposition home or self-care (01) | DRG 775 ==
LOC: LC 15:28 → LR 17:45 → 2S 11-20 18:15
PROVIDERS: ADMIT Obstetrics & Gynecology Gynecology; ATTEND Obstetrics & Gynecology Gynecology
PROC: 10E0XZZ Delivery of Products of Conception, External Approach (ICD-10-PCS; principal; 2017-11-19)
PROC: 0HQ9XZZ Repair Perineum Skin, External Approach (ICD-10-PCS; 2017-11-19)
DX: O14.94 Unspecified pre-eclampsia, complicating childbirth (principal); O60.14X0 Preterm labor third trimester with preterm delivery third trimester, not applicable or unspecified; O34.211 Maternal care for low transverse scar from previous cesarean delivery; O70.0 First degree perineal laceration during delivery; O76 Abnormality in fetal heart rate and rhythm complicating labor and delivery; N85.8 Other specified noninflammatory disorders of uterus; Z3A.34 34 weeks gestation of pregnancy; Z37.0 Single live birth
CPT/HCPCS: 36415; 76815; 80053; 80307; 81001; 82570; 83615; 84112; 84156; 84550; 85025; 85027; 86592; 86850; 86900; 86901; 86920; 88307; 90707; 90715; 94760; C1726; J0702; J1940; J2370; J2405; J2540; J2590; J3010; J3475; J3490